=== PATIENT | male | born 1955 | race Caucasian/White ===

== ENCOUNTER → 2019-12-06 | Outpatient (CLI) | payer MEDICARE ==
[~2019-12-06] MED LIST: REGADENOSON 0.4 MG/5 ML SYRINGE IV ONE
--- NOTE | 2019-12-06 10:51 | EST ---
EXERCISE STRESS DATE OF SERVICE: 12/06/2019 AGE: 64 SEX: Male HT: 67" WT: 160 pounds PROTOCOL: Lexiscan Cardiolite STAGE: DURATION OF EXERCISE: HEART RATE REST: 70 BLOOD PRESSURE REST: 129/67 MAXIMUM HEART RATE ACHIEVED: 83 MAXIMUM BLOOD PRESSURE: 129/67 85% MPHR: 133 100% MPHR: 156 METS: INDICATION: Chest pain. CLINICAL INFORMATION: Baseline EKG shows sinus rhythm with left bundle branch block. The patient was given intravenous Lexiscan as per protocol. Did not have chest pain or diagnostic ST-segment depression. CONCLUSIONS: 1. Inconclusive EKG part of the stress test due to left bundle branch block. 2. Cardiolite portion of the stress test will be reported separately. MMODL / IJN: [id number] /
--- NOTE | 2019-12-06 11:38 | NM ---
EXAMINATION TYPE: NM stress lexiscan cardiolite DATE OF EXAM: 12/06/2019 COMPARISON: Prior nuclear medicine stress test January 17, 2013. HISTORY: Angina and cardiomyopathy per order. History of hypertension hypercholesterolemia and tobacc o use presents with chest pain and difficulty in breathing on exertion. TECHNIQUE: After the intravenous administration of 9.3 mCi Tc 99m Sestamibi - Cardiolite resting SPE CT images acquired 60 minutes post injection. The patient received 0.4mg Lexiscan, 25.2 mCi Tc 99m Sestamibi - Stress images obtained [address] injection FINDINGS: Review of stress and rest SPECT images demonstrates as suspected clinically dilated cardiomyopathy wi th marked increased end-diastolic volume. There is global hypokinesis with overall ejection fraction measured under 20%. Diminished radiotracer uptake inferior wall towards the apex on stress versus res t images is present. Acute ischemia at this level cannot be excluded. Similar finding noted mid zone of the left lateral ventricular wall seen best on short axis images. Large area of old infarct is not identified. IMPRESSION: Now abnormal study with marked left ventricular dilatation and global hypokinesis, areas of acute ischemia difficult to exclude. Cardiology referral advised to further evaluate. A Yellow level critical message alert has been initiated for Kaleigh Sarah DO via the [employer] Critical Results System on 12/06/2019 11:36 AM. This message alert has been sent to Kaleigh Sarah DO via the preferences provided by the clinician for the receipt of Radiology Critical Findings. Message ID [id number].
== END | disposition home or self-care (01) ==
LOC: RADNMMAIN 07:34
PROVIDERS: ATTEND Family Medicine
DX: R94.31 Abnormal electrocardiogram [ECG] [EKG] (principal); I42.9 Cardiomyopathy, unspecified
CPT/HCPCS: 93017; 78452; A9500; J2785

== ENCOUNTER → 2019-12-14 | Outpatient (CLI) | payer MEDICARE ==
[2019-12-14 11:18] LABS: HCT 45.7 % (39.0-53.0); HGB 14.7 gm/dL (13.0-17.5); MCH 31.6 pg (25.0-35.0); MCHC 32.1 g/dL (31.0-37.0); MCV 98.4 fL (80.0-100.0); Mean Platelet Volume 7.5; Platelet Count 250 k/uL (150-450); RBC 4.64 m/uL (4.30-5.90); WBC 10.3 k/uL (3.8-10.6)
[2019-12-14 11:29] LABS: African American GFR (CKD) >90 (>60 ml/min/1.73 sqM); Anion Gap 6 mmol/L; Blood Urea Nitrogen 18 mg/dL (9-20); Carbon Dioxide 28 mmol/L (22-30); Chloride 103 mmol/L (98-107); Non-African American GFR(CKD) >90 (>60 ml/min/1.73 sqM); Potassium 4.5 mmol/L (3.5-5.1); Sodium 137 mmol/L (137-145)
== END | disposition home or self-care (01) ==
LOC: LABPAT 10:21
PROVIDERS: ATTEND Internal Medicine Cardiovascular Disease
DX: Z01.818 Encounter for other preprocedural examination (principal); I44.7 Left bundle-branch block, unspecified
CPT/HCPCS: 36415; 80051; 82565; 84520; 85027

== ENCOUNTER 2019-12-18 09:51 | Day surgery (SDC) | payer MEDICARE ==
[2019-12-14 15:20] VITALS: BMI 25.4
[~2019-12-18 09:51] MED LIST changes: +ALPRAZolam 0.25 MG TAB PO PRN; +ALPRAZolam 0.5 MG TAB PO PRN; +ASPIRIN 325 MG TAB PO STA; +ATORVASTATIN 80 MG TAB PO STA; +NITROGLYCERIN SL TABS 0.4 MG TAB SUBLINGUAL PRN; -REGADENOSON 0.4 MG/5 ML SYRINGE IV ONE; +SODIUM CHLORIDE 0.9% 1,000 ML in EMPTY BAG 1 BAG IV ONE
[2019-12-18 10:35] VITALS: RESP 16; TEMP 97.9
[2019-12-18] MEDS ORDERED: HEPARIN SODIUM 1,000 UN/ML (10ML VL) ONE (11:16)
[2019-12-18] MEDS ORDERED: LIDOCAINE 1% INJ 10MG/ML (20 ML MDV) ONE (11:16)
[2019-12-18] MEDS ORDERED: VERAPAMIL 2.5 MG/ML 2 ML AMP ONE (11:16)
[2019-12-18] MEDS ORDERED: fentaNYL (PF) 50 MCG/ML 2 ML AMP ONE (11:25)
[2019-12-18] MEDS ORDERED: fentaNYL (PF) 50 MCG/ML 2 ML AMP IV ONE (11:28)
[2019-12-18] MEDS ORDERED: MIDAZOLAM 2 MG/2 ML VIAL IV ONE (11:28)
[2019-12-18] MEDS ORDERED: LIDOCAINE 1% INJ 10MG/ML (20 ML MDV) SQ ONE (11:31)
[2019-12-18] MEDS ORDERED: VERAPAMIL SYRINGE (5 MG/10 ML) INTRAARTER ONE (11:33)
[2019-12-18] MEDS ORDERED: IOPAMIDOL-370 125ML BTL INJ ONE (11:44)
[2019-12-18] MEDS ORDERED: IOPAMIDOL-370 50ML BTL INJ ONE (11:55)
[2019-12-18] MEDS ORDERED: RX INFO: IV CONTRAST WAS GIVEN 1 EACH MISC MISCELLANE PRN (12:10)
[2019-12-18] MEDS ORDERED: traMADol 50 MG TAB PO PRN (12:11)
[2019-12-18] MEDS ORDERED: SODIUM CHLORIDE 0.9% 1,000 ML IV SCH (12:15)
--- NOTE | 2019-12-18 12:19 | P.CARDCATH ---
Date of Procedure: 12/18/19 Preoperative Diagnosis: Exertional chest tightness, cardiomyopathy and positive stress test Postoperative Diagnosis: Calcification and ectasia of the coronary system without any significant focal lesions Procedure(s) Performed: Left heart catheterization with left ventriculography Description of Procedure: HISTORY: This is a 64-year-old gentleman with history of chronic left bundle- branch block and mild cardiomyopathy who was been experiencing exertional chest tightness and shortness of breath. Had a nuclear stress test at the hospital which was reported as showing severe fix-it defects and possible ischemia with a severely impaired LV function. Patient is advised to have a cardiac catheterization for definitive diagnosis. CONSENT:I have discussed the risks, benefits and alternative therapies for the above-mentioned procedure and for both sedation/analgesia as well as necessary blood product administration, if indicated, as they pertain to this patient. The patient has indicated understanding and acceptance of the risks and procedures discussed. PROCEDURE: Patient was brought to the lab in a fasting state. Patient was given some IV sedation. The right wrist is infiltrated with lidocaine and right radia l artery was entered using Seldinger technique. A 6-Swedish catheter was left in place and selective coronary arteriography and left ventriculography was performed. Patient tolerated the procedure well. TR band was applied for hemostasis. No immediate complications were noted and patient was transferred to [facility] in a stable condition Conscious Sedation: Versed 1mg Fentanyl 50 g Duration 32minutes HEMODYNAMICS: The aortic pressure is about 120/70. Left ankle end-diastolic pressure is 5-10. There was no gradient across the aortic valve SELECTIVE CORONARY ARTERIOGRAPHY: LEFT MAIN: This is normal in length and free of any significant occlusive disease. This is calcified THE LEFT ANTERIOR DESCENDING CORONARY ARTERY: This is a good caliber vessel with a some calcification and ectasia in the proximal portion. It gives rise to 3 diagonal branches. The second diagonal branch eczema. TAC and mild ostial stenosis. Rest of the LAD is free of any significant occlusive disease THE LEFT CIRCUMFLEX AND IS CORONARY ARTERY:. This is a good caliber vessel with a small AV groove segment and a good OM branch. The vessel is free of occlusive disease THE RIGHT CORONARY ARTERY:. This is a dominant vessel giving rise to PDA and PLV and free of any significant occlusive disease. Mild calcification the proximal portion LEFT VENTRICULOGRAPHY:. This revealed enlarged left ventricle with generalized hypokinesia with ejection fraction of about 15-20% FINAL IMPRESSION:. Mild coronary artery disease with calcification and ectasia of the proximal LAD and diagonal branch. Severely impaired LV function with a severely dilated left ventricle, consistent the nonischemic cardio myopathy with an ejection fraction of 15-20% PLAN:. Continued medical therapy. Consider for biventricular pacemaker and AICD PROGNOSIS: Guarded
--- NOTE | 2019-12-18 12:22 | P.PRLE ---
RE: Enoc Sanchez Dear Dr. Sarah, This is 64-year-old gentleman was evaluated by cardiac catheterization because of new-onset symptoms of exertional shortness of breath and chest pain and positive stress test. His cardiac catheterization did not reveal any significant obstructive disease. There is calcification and mild ectasia of the left anterior descending coronary artery. However left ventricle is severely dilated with a severe LV dysfunction. He also has underlying left bundle branch block pattern. Patient is recommended maximum medical therapy. He will also be considered for possible by be pacemaker under AICD. Prognosis is guarded Thank you again for letting me part sprayed in the care of this patient. Should you have any questions please feel free to contact me. Dr. Carlos nielsen.
[2019-12-18 13:18] VITALS: BP 122/72; PULSE 60
[2019-12-18] MEDS ORDERED: HEPARIN SODIUM,PORCINE 30 ML 30 ML ONE (14:12)
[2019-12-18] MEDS ORDERED: CARVEDILOL 3.125 MG TAB PO SCH (17:30)
[2019-12-18] MEDS ORDERED: NON FORMULARY DRUG (Fish Oil/Dha/Epa [Fish Oil 1,200 Mg Fish Oil] 1 EACH) PO SCH (21:00)
[2019-12-18] MEDS ORDERED: ENALAPRIL 2.5 MG PO SCH (21:00)
[2019-12-19] MEDS ORDERED: ASPIRIN 81 MG PO SCH (09:00)
[2019-12-19] MEDS ORDERED: NON FORMULARY DRUG (Simvastatin 40 MG) PO SCH (09:00)
[2019-12-22] MEDS ORDERED: ERGOCALCIFEROL 50,000 UNIT CAP PO SCH (12:11)
== END 2019-12-18 16:00 | disposition home or self-care (01) ==
LOC: CATHCVL 09:51
PROVIDERS: ATTEND Internal Medicine Cardiovascular Disease
DX: I25.10 Atherosclerotic heart disease of native coronary artery without angina pectoris (principal); I25.84 Coronary atherosclerosis due to calcified coronary lesion; I10 Essential (primary) hypertension; I42.9 Cardiomyopathy, unspecified; I44.7 Left bundle-branch block, unspecified; R94.39 Abnormal result of other cardiovascular function study; R93.1 Abnormal findings on diagnostic imaging of heart and coronary circulation; J44.9 Chronic obstructive pulmonary disease, unspecified; E78.00 Pure hypercholesterolemia, unspecified; E78.5 Hyperlipidemia, unspecified; G47.30 Sleep apnea, unspecified; Z79.82 Long term (current) use of aspirin; Z79.899 Other long term (current) drug therapy
CPT/HCPCS: 93458; C1769 ×2; C1894; J2250; J2001; J3010; J1644; Q9967 ×2

== ENCOUNTER 2021-09-19 09:22 | Inpatient (IN) | payer MEDICARE ==
--- NOTE | 2021-09-19 10:07 | ED ---
General Adult HPI - General Chief complaint: Shortness of Breath Stated complaint: VAMSI Time Seen by Provider: 09/19/21 09:48 Source: patient, RN notes reviewed, old records reviewed Mode of arrival: wheelchair Limitations: physical limitation - History of Present Illness Initial comments: 60 sexual male presenting for URI symptoms. Patient states over the past one week he's had cough and congestion. This started initially as nasal congestion and cold followed by chest congestion. He denies central chest pain. He has not been vaccinated against coronavirus. He denies lower extremity pain or swelling. Denies measured fever. Patient does have previous history of CHF and low ejection fraction. He states that he has abstained from both alcohol and tobacco use. - Related Data Home Medications Medication Instructions Recorded Confirmed Aspirin 81 mg PO DAILY 07/30/16 09/19/21 Enalapril [Vasotec] 5 mg PO AC-BRKFST 07/30/16 09/19/21 Fish Oil/Dha/Epa [Fish Oil 1,200 1 cap PO DAILY 07/30/16 09/19/21 mg Fish Oil] Simvastatin [Zocor] 40 mg PO HS 07/30/16 09/19/21 Vitamin B Complex 1 tab PO DAILY 07/30/16 09/19/21 Ergocalciferol [Vitamin D2 50,000 unit PO FR 12/14/19 09/19/21 (DRISDOL)] Azithromycin [Zithromax Z-pack (6 See Taper PO DIRECTED 09/19/21 09/19/21 tabs)] Previous Rx's Medication Instructions Recorded carvediloL [Coreg] 3.125 mg PO BID-W/MEALS #60 tab 12/18/19 Allergies Allergy/AdvReac Type Severity Reaction Status Date / Time No Known Allergies Allergy Verified 09/19/21 10:45 Review of Systems ROS Statement: Those systems with pertinent positive or pertinent negative responses have been documented in the HPI. ROS Other: All systems not noted in ROS Statement are negative. Past Medical History Past Medical History: Chest Pain / Angina, Deep Vein Thrombosis (DVT), Hyperlipidemia, Hypertension, Osteoarthritis (OA), Sleep Apnea/CPAP/BIPAP Additional Past Medical History / Comment(s): . DVT in 1983 after leg fx, hx kidney stones. "Bad stress test." Joint pain. No CPAP use. History of Any Multi-Drug Resistant Organisms: None Reported Past Surgical History: Orthopedic Surgery Additional Past Surgical History / Comment(s): Carapl tunnel both hands, cubital tunnel bilateral elbows, trigger thumbs, right ring finger trigger finger release, left ankle & right femur ORIF, cataract surgery. Past Anesthesia/Blood Transfusion Reactions: No Reported Reaction Past Psychological History: No Psychological Hx Reported Smoking Status: Current every day smoker Past Alcohol Use History: Rare Past Drug Use History: None Reported - Past Family History Mother Family Medical History: No Reported History General Exam Limitations: physical limitation General appearance: alert, in no apparent distress Head exam: Present: atraumatic, normocephalic Eye exam: Present: normal appearance, PERRL ENT exam: Present: mucous membranes moist Neck exam: Present: normal inspection. Absent: tenderness, meningismus Respiratory exam: Present: normal lung sounds bilaterally. Absent: respiratory distress, wheezes, rales Cardiovascular Exam: Present: regular rate, normal rhythm GI/Abdominal exam: Present: soft. Absent: distended, tenderness, guarding Extremities exam: Present: normal inspection, normal capillary refill. Absent: pedal edema Neurological exam: Present: alert, oriented X3, CN II-XII intact. Absent: motor sensory deficit Psychiatric exam: Present: normal affect, normal mood Skin exam: Present: warm, dry, intact. Absent: cyanosis, diaphoretic Course Vital Signs 09/19/21 09/19/21 09:23 10:54 Temperature 97.7 F Pulse Rate 81 73 Respiratory 18 18 Rate Blood Pressure 173/91 113/87 O2 Sat by Pulse 97 97 Oximetry EKG Findings - EKG Comments: EKG Findings:: EKG: Normal sinus rhythm, left axis, left bundle branch block, rate of 81, CA interval 146, QRS duration 196 QTC 548. Medical Decision Making - Medical Decision Making 66 yo male presenting for evaluation of cough cold symptoms, dyspnea. He has a significant past medical history of CHF and cardiomyopathy. He denies central chest pain currently or in the past several weeks. He has had some chest conge stion and difficulty breathing. His coronavirus testing is negative. Chest x- ray does show concern for CHF and pulmonary edema. Patient has normal CBC, normal CMP, elevated BNP at 10,000 and elevated troponin. I suspect troponin elevation is secondary to CHF. However he will be started on heparin awaiting trended levels. He is given an aspirin and Lasix in the emergency department. Echo has been ordered. He will be admitted to Dr. Beatty who is aware and cardiology will be placed on consult. - Lab Data Result diagrams: 09/19/21 10:40 09/19/21 10:40 Lab Results 09/19/21 09/19/21 09/19/21 Range/Units 09:30 10:40 10:40 WBC 9.0 (3.8-10.6) k/uL RBC 4.51 (4.30-5.90) m/uL Hgb 15.4 (13.0-17.5) gm/dL Hct 46.7 (39.0-53.0) % MCV 103.6 H (80.0-100.0) fL MCH 34.0 (25.0-35.0) pg MCHC 32.9 (31.0-37.0) g/dL RDW 13.8 (11.5-15.5) % Plt Count 254 (150-450) k/uL MPV 8.5 Neutrophils % 73 % Lymphocytes % 16 % Monocytes % 7 % Eosinophils % 3 % Basophils % 1 % Neutrophils # 6.6 (1.3-7.7) k/uL Lymphocytes # 1.4 (1.0-4.8) k/uL Monocytes # 0.6 (0-1.0) k/uL Eosinophils # 0.3 (0-0.7) k/uL Basophils # 0.1 (0-0.2) k/uL Macrocytosis Slight APTT 22.9 (22.0-30.0) sec Sodium (137-145) mmol/L Potassium (3.5-5.1) mmol/L Chloride (98-107) mmol/L Carbon Dioxide (22-30) mmol/L Anion Gap mmol/L BUN (9-20) mg/dL Creatinine (0.66-1.25) mg/dL Est GFR (CKD-EPI)AfAm (>60 ml/min/1.73 sqM) Est GFR (CKD-EPI)NonAf (>60 ml/min/1.73 sqM) Glucose (74-99) mg/dL Calcium (8.4-10.2) mg/dL Magnesium (1.6-2.3) mg/dL Total Bilirubin (0.2-1.3) mg/dL AST (17-59) U/L ALT (4-49) U/L Alkaline Phosphatase (38-126) U/L Troponin I (0.000-0.034) ng/mL NT-Pro-B Natriuret Pep pg/mL Total Protein (6.3-8.2) g/dL Albumin (3.5-5.0) g/dL Coronavirus (PCR) Not Detected (Not Detectd) 09/19/21 09/19/21 09/19/21 Range/Units 10:40 10:40 10:40 WBC (3.8-10.6) k/uL RBC (4.30-5.90) m/uL Hgb (13.0-17.5) gm/dL Hct (39.0-53.0) % MCV (80.0-100.0) fL MCH (25.0-35.0) pg MCHC (31.0-37.0) g/dL RDW (11.5-15.5) % Plt Count (150-450) k/uL MPV Neutrophils % % Lymphocytes % % Monocytes % % Eosinophils % % Basophils % % Neutrophils # (1.3-7.7) k/uL Lymphocytes # (1.0-4.8) k/uL Monocytes # (0-1.0) k/uL Eosinophils # (0-0.7) k/uL Basophils # (0-0.2) k/uL Macrocytosis APTT (22.0-30.0) sec Sodium 137 (137-145) mmol/L Potassium 4.9 (3.5-5.1) mmol/L Chloride 106 (98-107) mmol/L Carbon Dioxide 23 (22-30) mmol/L Anion Gap 8 mmol/L BUN 22 H (9-20) mg/dL Creatinine 0.89 (0.66-1.25) mg/dL Est GFR (CKD-EPI)AfAm >90 (>60 ml/min/1.73 sqM) Est GFR (CKD-EPI)NonAf 89 (>60 ml/min/1.73 sqM) Glucose 119 H (74-99) mg/dL Calcium 8.9 (8.4-10.2) mg/dL Magnesium 2.0 (1.6-2.3) mg/dL Total Bilirubin 1.0 (0.2-1.3) mg/dL AST 52 (17-59) U/L ALT 76 H (4-49) U/L Alkaline Phosphatase 64 (38-126) U/L Troponin I 0.243 H* (0.000-0.034) ng/mL NT-Pro-B Natriuret Pep 9880 pg/mL Total Protein 6.2 L (6.3-8.2) g/dL Albumin 3.6 (3.5-5.0) g/dL Coronavirus (PCR) (Not Detectd) Critical Care Time Critical Care Time: Yes Total Critical Care Time: 35 Disposition Clinical Impression: Congestive heart failure, Elevated troponin Disposition: ADMITTED IP TO THIS [facility] Condition: Stable Is patient prescribed a controlled substance at d/c from ED?: No Referrals: Kaleigh Sarah DO [Primary Care Provider] - 1-2 days Decision to Admit Reason: Admit from EC Decision Date: 09/19/21 Decision Time: 12:17
--- NOTE | 2021-09-19 10:32 | XR ---
EXAMINATION TYPE: XR chest 1V portable DATE OF EXAM: 09/19/2021 COMPARISON: NONE HISTORY: Cough TECHNIQUE: Single frontal view of the chest is obtained. FINDINGS: Heart is enlarged. There is subsegmental changes at the left lung base and prominent inter stitial. Soft tissue artifact overlying the lung apices. Underlying COPD suspected. IMPRESSION: 1. Correlate for bronchitis or mild interstitial pneumonitis with basilar atelectasis favored over pn eumonia. Mild venous congestion not excluded. 2. COPD and severe cardiomegaly
[2021-09-19 11:07] LABS: Basophils # (A) 0.1 k/uL (0-0.2); Basophils % (A) 1 %; Eosinophils # (A) 0.3 k/uL (0-0.7); Eosinophils % (A) 3 %; HCT 46.7 % (39.0-53.0); HGB 15.4 gm/dL (13.0-17.5); Lymphocytes # (A) 1.4 k/uL (1.0-4.8); Lymphocytes % (A) 16 %; MCHC 32.9 g/dL (31.0-37.0); MCV 103.6 fL (80.0-100.0); Macrocytosis Slight; Mean Platelet Volume 8.5; Monocytes # (A) 0.6 k/uL (0-1.0); Monocytes % (A) 7 %; Neutrophils # (A) 6.6 k/uL (1.3-7.7); Neutrophils % (A) 73 %; Platelet Count 254 k/uL (150-450); RBC 4.51 m/uL (4.30-5.90); RDW 13.8 % (11.5-15.5)
[2021-09-19 11:26] LABS: ALT 76 U/L (4-49); AST 52 U/L (17-59); African American GFR (CKD) >90 (>60 ml/min/1.73 sqM); Albumin 3.6 g/dL (3.5-5.0); Alkaline Phosphatase 64 U/L (38-126); Anion Gap 8 mmol/L; Blood Urea Nitrogen 22 mg/dL (9-20); Calcium 8.9 mg/dL (8.4-10.2); Carbon Dioxide 23 mmol/L (22-30); Chloride 106 mmol/L (98-107); Glucose 119 mg/dL (74-99); Non-African American GFR(CKD) 89 (>60 ml/min/1.73 sqM); Potassium 4.9 mmol/L (3.5-5.1); Sodium 137 mmol/L (137-145); Total Protein 6.2 g/dL (6.3-8.2)
[2021-09-19] MEDS ORDERED: FUROSEMIDE 10 MG/ML 4 ML VIAL IV STA (11:46)
[2021-09-19] MEDS ORDERED: ASPIRIN 325 MG TAB PO STA (12:06)
[2021-09-19] MEDS ORDERED: HEPARIN SODIUM 1,000 UN/ML (10ML VL) IV ONE (12:06)
[2021-09-19] MEDS ORDERED: ACETAMINOPHEN TAB 325 MG TAB PO PRN (12:12)
[2021-09-19] MEDS ORDERED: NALOXONE 0.4 MG/ML 1 ML VIAL IV PRN (12:12)
[2021-09-19] MEDS: HEPARIN SOD,PORK IN 0.45% NACL 25,000 UNIT in 0.45% NACL 1 250ML.BAG IV SCH (12:41)
[2021-09-19] MEDS: carvediloL 6.25 MG TAB PO SCH ×2 (17:48→17:49)
[2021-09-19] MEDS: lisinopriL 5 MG TAB PO SCH ×2 (17:49→19:48)
[2021-09-19] MEDS: SPIRONOLACTONE 25 MG TAB PO SCH (17:49)
[2021-09-19] MEDS ORDERED: ALPRAZolam 0.25 MG TAB PO PRN (17:53)
--- NOTE | 2021-09-19 18:00 | ECHOF ---
Referral Reason:chf MEASUREMENTS -------- HEIGHT: 170.2 cm WEIGHT: 68.0 kg BP: 113/87 RVIDd: 4.4 cm (< 3.3) IVSd: 1.0 cm (0.6 - 1.1) LVIDd: 7.5 cm (3.9 - 5.3) LVPWd: 1.1 cm (0.6 - 1.1) IVSs: 1.6 cm LVIDs: 7.1 cm LVPWs: 1.6 cm LA Diam: 4.7 cm (2.7 - 3.8) LAESV Index (A-L): 44.39 ml/m Ao Diam: 3.4 cm (2.0 - 3.7) AV Cusp: 1.4 cm (1.5 - 2.6) MV EXCURSION: 14.197 mm (> 18.000) MV EF SLOPE: 74 mm/s (70 - 150) EPSS: 4.6 cm RAP: 5.00 mmHg RVSP: 40.84 mmHg FINDINGS -------- This was a technically good study. The left ventricle is severely dilated. There is borderline concentric left ventricular hypertrophy . The calculated left ventricular ejection fraction is 11%. The right ventricle is severely enlarged. LA is severely dilated >40 ml/m2 The right atrium is normal in size. Interatrial and interventricular septum intact. The aortic valve is trileaflet, and appears structurally normal. No aortic stenosis or regurgitation. Mild mitral regurgitation is present. [id number] tricuspid regurgitation present. There is mild pulmonary hypertension. The right ventricular systolic pressure, as measured by Doppler, is 40.84mmHg. Trace/mild (physiologic) pulmonic regurgitation. The aortic root size is normal. Normal inferior vena cava with normal inspiratory collapse consistent with estimated right atrial pre ssure of 5 mmHg. The inferior vena cava is mildly dilated. There is a small pericardial effusion located near the left ventricle. CONCLUSIONS -------- 1. The calculated left ventricular ejection fraction is 11%. 2. The right ventricle is severely enlarged. 3. LA is severely dilated >40 ml/m2 4. The aortic valve is trileaflet, and appears structurally normal. No aortic stenosis or regurgitati on. 5. Mild mitral regurgitation is present. 6. [id number] tricuspid regurgitation present. 7. There is mild pulmonary hypertension. 8. The right ventricular systolic pressure, as measured by Doppler, is 40.84mmHg. 9. Trace/mild (physiologic) pulmonic regurgitation. 10. The inferior vena cava is mildly dilated. 11. There is a small pericardial effusion located near the left ventricle. CUSTOMER FIELD REPRESENTATIVE: Danna Moncada RDCS
[2021-09-19] MEDS ORDERED: ERGOCALCIFEROL 1,250 MCG (50,000 IU) CAPSULE PO SCH (19:00)
--- NOTE | 2021-09-19 19:19 | CONS ---
CONSULTATION Mr. Sanchez is a 66-year-old male with a known history of severe nonischemic cardiomyopathy, history of chronic tobacco use, history of left bundle branch block and a prior history of alcohol intake. He underwent cardiac catheterization in December of [address] Hewitt and at that time was found to have minimal coronary artery disease with severely impaired left ventricular systolic function. Recommendations at that time were made regarding ICD biventricular implantation. The patient presented with progressive symptoms of dyspnea on exertion and cough as well as chest discomfort with coughing. He continues to smoke about a pack a day. He denies any peripheral edema. He has occasional recent PND. No dizziness. No palpitations. No syncope. He has cut down his alcohol intake and drinks on an occasional basis at this time, according to him. His coronary risk factors are remarkable for hypertension and hyperlipidemia. He is nondiabetic. He is a smoker, as noted. His medications include aspirin, enalapril 5 mg daily, carvedilol 3.125 mg twice a day, simvastatin 40 mg daily, vitamin D. REVIEW OF SYSTEMS: RESPIRATORY SYSTEM: He has history of chronic obstructive lung disease, history of cough and wheezing. GI SYSTEM: No recent GI bleeding. No peptic ulcer disease. SYSTEM: No dysuria or hematuria. NERVOUS SYSTEM: No stroke or seizure. PHYSICAL EXAMINATION: This is a 66-year-old male, alert, oriented, mildly dyspneic. Blood pressure in the 170s with a heart rate in the 80s. HEAD: Normocephalic. EYES: Sclerae anicteric. NECK: Good carotid upstroke. No bruit. No jugular venous distention. LUNGS: Decreased air exchange bilaterally with scattered rhonchi. HEART: Regular rate and rhythm. S1, S2. Plus S3. Systolic ejection murmur, left upper sternal border. No diastolic murmur. No rub. ABDOMEN: Soft, nontender. Positive bowel sounds. No organomegaly. EXTREMITIES: No edema. Intact distal pulses. LAB DATA: Lab data revealed troponin 0.243. NT proBNP of 9880. BUN and creatinine 22 and 0.89. Potassium 4.9, hemoglobin 15.4. Chest x-ray shows bronchitis mild interstitial pneumonitis with possible congestion and cardiomegaly and COPD. On the monitor he is in left bundle branch block. IMPRESSION: 1. Symptoms of progressive dyspnea with congestive heart failure with severe nonischemic cardiomyopathy. 2. Mild troponin elevation related to the congestive heart failure. Patient has no significant coronary artery disease. 3. Chronic tobacco use with chronic obstructive lung disease. 4. Hyperlipidemia. 5. Hypertension. 6. Prior history of alcohol intake, improved. RECOMMENDATIONS: From the cardiac standpoint, will obtain repeat echocardiogram with Doppler. He has been started on IV Lasix. I will continue IV heparin for 24 hours. He will be continued on the beta césar and the JESSICA inhibitor. I will add Aldactone to his regimen. Will obtain echocardiogram. Depending on his progress, further recommendations will be made. I have discussed with him the importance of smoking cessation. Unfortunately the prognosis is guarded. Thank you for this consult. Will follow with you. YADIEL / IJN: [id number] /
--- NOTE | 2021-09-19 19:46 | HP ---
HISTORY AND PHYSICAL I am covering for Dr. Sarah. DATE OF SERVICE: 09/19/2021. CHIEF COMPLAINT: Shortness of breath. HISTORY OF PRESENT ILLNESS: This 66-year-old gentleman with a past medical history of chest pain, history of DVT, history of hyperlipidemia, hypertension, DJD, history of sleep apnea, being followed Dr. Sarah in the outpatient setting, was complaining of shortness of breath. The patient had some cough and congestion. The patient was vaccinated against COVID-19. Patient apparently has a history of CHF and low ejection fraction, also. Previous cardiac catheterization did not show any significant obstructive disease. On admission the troponin was found to be 0.243. BNP was 9880. COVID-19 was negative. Chest x-ray which was done, which I personally evaluated, showed evidence of cardiomegaly and CHF. Patient is admitted for further evaluation and treatment. There is no history of any fever, rigor or chills at this time. PAST MEDICAL HISTORY: History of cardiomyopathy, history of DVT, history of CHF with chronic systolic , hypertension, hyperlipidemia, history of DJD. MEDICATIONS: Medications to admission included Zocor, vitamin D, Z-Galindo, Coreg, Vasotec, vitamin B, fish oil, aspirin. ALLERGIES: NONE. FAMILY HISTORY: No history of heart disease or strokes in the family. SOCIAL HISTORY: History of smoking, continued and ongoing. REVIEW OF SYSTEMS: ENT: No diminished hearing. No diminished vision. CARDIOVASCULAR SYSTEM: No angina, palpitations. RESPIRATORY SYSTEM: As mentioned earlier. GI: As mentioned earlier. : No dysuria. NERVOUS SYSTEM: No numbness, weakness. ALLERGY/IMMUNOLOGY: No asthma or hay fever. MUSCULOSKELETAL: As mentioned earlier. HEMATOLOGY/ONCOLOGY: No history of anemia. ENDOCRINE: No history of diabetes or hypothyroidism. CONSTITUTIONAL: As mentioned earlier. DERMATOLOGY: Negative. RHEUMATOLOGY: Negative. PSYCHIATRY: As mentioned earlier. PHYSICAL EXAMINATION: Patient alert and oriented x3. Pulse 78, blood pressure ntd, respirations 16, temperature 97.7, pulse ox 96% on room air. HEENT: Conjunctivae normal. NECK: No jugular venous distention. CARDIOVASCULAR: S1, S2 muffled. RESPIRATION: Breath sounds diminished at the bases. A few scattered rhonchi and crackles. ABDOMEN: Soft, nontender. LEGS: No edema. No swelling. NERVOUS SYSTEM: Higher functions as mentioned earlier. Moves all 4 limbs. No focal motor or sensory deficit. LYMPHATICS: No lymph node palpable in neck, axillae or groin. SKIN: No ulcer, rash, bleeding. JOINTS: No active deforming arthropathy. LABS: WBC 9.3 and MCV 103. Other labs are noted. Troponin noted. ASSESSMENT: 1. Congestive heart failure, acute exacerbation, with acute on chronic systolic dysfunction. 2. History of possible dilated cardiomyopathy history. 3. Troponin elevated up to 0.243. Rule out acute non-STEMI. 4. Elevated ALT. 5. Increased mean corpuscular volume. 6. History of and continued nicotine dependence. 7. History of deep vein thrombosis. 8. Hypertension. 9. Hyperlipidemia. 10.History of degenerative joint disease. 11.History of sleep apnea. 12.History of carpal tunnel syndrome. 13.FULL CODE. RECOMMENDATIONS AND DISCUSSION: In this 66-year-old gentleman who presented with multiple complex medical issues, we will monitor the patient closely, continue the current medications, continue symptomatic treatment. Will initiate intravenous Lasix and continue to monitor. Cardiology consultation. Otherwise, resume the home medications. The prognosis is guarded because of multiple complex medical issues. Further recommendations to follow. Patient was started on Aldactone also as well as Coreg. Repeat labs will be ordered tomorrow. Further recommendations to follow. A copy of this dictation is being forwarded to Dr. Sarah, who is the primary physician. Home medications will be continued. MMODL / IJN: [id number] / MTDD
[2021-09-19] MEDS: FUROSEMIDE 10 MG/ML 4 ML VIAL IV SCH (19:47)
[2021-09-19] MEDS: ATORVASTATIN 20 MG TAB PO SCH (19:48)
[2021-09-19] MEDS: HEPARIN SODIUM 1,000 UN/ML (10ML VL) IV PRN (19:59)
[2021-09-20 01:56] LABS: Basophils # (A) 0.1 k/uL (0-0.2); Basophils % (A) 1 %; Eosinophils # (A) 0.5 k/uL (0-0.7); Eosinophils % (A) 6 %; HCT 47.7 % (39.0-53.0); HGB 15.3 gm/dL (13.0-17.5); Lymphocytes % (A) 22 %; MCHC 32.1 g/dL (31.0-37.0); MCV 102.9 fL (80.0-100.0); Macrocytosis Slight; Mean Platelet Volume 8.3; Monocytes # (A) 0.7 k/uL (0-1.0); Monocytes % (A) 8 %; Neutrophils # (A) 5.7 k/uL (1.3-7.7); Neutrophils % (A) 62 %; Platelet Count 251 k/uL (150-450); RBC 4.63 m/uL (4.30-5.90); RDW 13.9 % (11.5-15.5); WBC 9.2 k/uL (3.8-10.6)
[2021-09-20 01:59] LABS: Calcium 8.6 mg/dL (8.4-10.2)
[2021-09-20 02:01] LABS: INR 1.1 (<1.2); Partial Thromboplastin Time 39.4 sec (22.0-30.0); Prothrombin Time 11.7 sec (9.0-12.0)
[2021-09-20] MEDS: HEPARIN SODIUM 1,000 UN/ML (10ML VL) IV PRN (02:12)
[2021-09-20] MEDS: PANTOPRAZOLE 40 MG TABLET PO SCH (06:35)
[2021-09-20] MEDS ORDERED: ENALAPRIL 5 MG PO SCH (07:30)
[2021-09-20] MEDS ORDERED: NON FORMULARY DRUG (Fish Oil/Dha/Epa [Fish Oil 1,200 Mg Fish Oil] 1 EACH Capsule) PO SCH (09:00)
[2021-09-20] MEDS ORDERED: NON FORMULARY DRUG (Vitamin B Complex [Vitamin B Complex] 1 EACH Capsule) PO SCH (09:00)
[2021-09-20] MEDS: SPIRONOLACTONE 25 MG TAB PO SCH (09:06)
[2021-09-20] MEDS: ATORVASTATIN 40 MG TAB PO SCH (09:06)
[2021-09-20] MEDS: ASPIRIN 81 MG PO SCH (09:06)
[2021-09-20] MEDS: FUROSEMIDE 10 MG/ML 4 ML VIAL IV SCH (09:06)
[2021-09-20] MEDS: lisinopriL 5 MG TAB PO SCH ×2 (09:06→20:23)
[2021-09-20] MEDS ORDERED: SODIUM CHLORIDE 0.65% NASAL SPRAY 44 ML BTL NASAL PRN (09:14)
[2021-09-20] MEDS: HEPARIN SOD,PORK IN 0.45% NACL 25,000 UNIT in 0.45% NACL 1 250ML.BAG IV SCH (11:25)
--- NOTE | 2021-09-20 12:22 | PN ---
PROGRESS NOTE Mr. Sanchez is a 66-year-old male who presented with symptoms of progressive dyspnea and evidence of congestive heart failure. Patient has severe nonischemic cardiomyopathy. He has not been seen recently in the past. Recommendations were made regarding ICD biventricular implant. He has an underlying left bundle branch block. He is feeling much better today. His breathing is much better. He is denying any chest pain. He denies any dizziness or palpitations. He continues to have a cough but it has improved. He had an echocardiogram that revealed an ejection fraction reported to be 11% with biventricular dilatation and mild to moderate tricuspid and mild mitral regurgitation. He continues to be at this time on aspirin once a day, Lipitor 20 mg daily, Coreg 6.5 mg twice a day, Lasix 40 mg IV q.12 hours, IV heparin, lisinopril 5 mg twice a day and spironolactone 25 mg daily. PHYSICAL EXAMINATION: Blood pressure running in the low 100s with a heart rate in the 60s. Lungs with decreased air exchange. No wheezes. HEART: Regular rate and rhythm. S1, S2. Plus S3 and a systolic murmur. ABDOMEN: Soft, nontender. Positive bowel sounds. No organomegaly. EXTREMITIES: No edema. LAB DATA: Lab data revealed BUN and creatinine of 32 and 1.02. IMPRESSION: 1. Congestive heart failure with history of severe nonischemic cardiomyopathy. 2. Mild troponin elevation related to the congestive heart failure. No evidence of acute ischemic event. 3. Chronic tobacco use. 4. Chronic left bundle branch block. 5. Hyperlipidemia. 6. Prior history of alcohol intake. RECOMMENDATIONS: I will switch him to oral diuretic and I will stop the IV heparin. Follow his renal function closely. The patient will require evaluation down the road for ICD biventricular implantation, hoping to improve his overall status. Unfortunately the prognosis is guarded. MMODL / IJN: [id number] /
--- NOTE | 2021-09-20 19:38 | PN ---
PROGRESS NOTE DATE OF SERVICE: 09/20/2021 This 66-year-old gentleman admitted with CHF, acute exacerbation, also had significant systolic dysfunction, ejection fraction found to be only 11%. The patient is being closely monitored at this time. Patient is started on diuretics. No chest pain. No palpitations. No fever. PHYSICAL EXAMINATION: Alert and oriented x3. Pulse is 66, blood pressure 103/64, respiration 16, temperature 98.2, pulse ox 94% on room air. HEENT: Conjunctivae normal. NECK: No jugular venous distention. CARDIOVASCULAR: S1, S2 muffled. RESPIRATION: Breath sounds diminished at the bases. A few scattered rhonchi. ABDOMEN: Soft. LEGS: No edema. No swelling. NERVOUS SYSTEM: No focal deficit. LABS: Troponin 0.243 and 2.73. ASSESSMENT: 1. Congestive heart failure, acute exacerbation, with acute on chronic systolic dysfunction, ejection fraction 11%. 2. Possible dilated cardiomyopathy history. 3. Troponin elevated at 0.243, unlikely due to coronary artery disease per Cardiology, related to CHF and cardiomyopathy. 4. Elevated ALT. 5. Increased mean corpuscular volume. 6. History of continuing ongoing nicotine dependence. 7. History of deep vein thrombosis. 8. Hypertension. 9. Hyperlipidemia. 10.History of degenerative joint disease. 11.History of sleep apnea. 12.History of carpal tunnel syndrome. 13.FULL CODE. RECOMMENDATIONS AND DISCUSSION: I recommend to continue current medications, continue with the monitoring, symptomatic treatment. Continue with the diuretics. Monitor closely with Cardiology. Troponins are noted. Will continue to monitor. Guarded prognosis. Further recommendations to follow. Repeat labs will be ordered. MMODL / IJN: [id number] /
[2021-09-20] MEDS: HEPARIN SODIUM,PORCINE/PF 5,000 UNIT/0.5 ML SYRINGE SQ SCH (20:22)
[2021-09-20] MEDS: ATORVASTATIN 20 MG TAB PO SCH (20:23)
[2021-09-20] MEDS: FUROSEMIDE 20 MG TAB PO SCH (20:23)
[2021-09-21] MEDS: PANTOPRAZOLE 40 MG TABLET PO SCH (06:36)
[2021-09-21] MEDS: carvediloL 6.25 MG TAB PO SCH ×2 (06:36→17:39)
[2021-09-21 08:27] LABS: Basophils # (A) 0.1 k/uL (0-0.2); Basophils % (A) 1 %; Eosinophils # (A) 0.4 k/uL (0-0.7); Eosinophils % (A) 5 %; HGB 17.3 gm/dL (13.0-17.5); Lymphocytes # (A) 1.9 k/uL (1.0-4.8); Lymphocytes % (A) 25 %; MCHC 33.3 g/dL (31.0-37.0); MCV 102.2 fL (80.0-100.0); Macrocytosis Slight; Monocytes # (A) 0.7 k/uL (0-1.0); Monocytes % (A) 10 %; Neutrophils # (A) 4.4 k/uL (1.3-7.7); Neutrophils % (A) 58 %; Platelet Count 270 k/uL (150-450); RBC 5.09 m/uL (4.30-5.90); RDW 13.2 % (11.5-15.5); WBC 7.7 k/uL (3.8-10.6)
[2021-09-21 08:34] LABS: Calcium 9.4 mg/dL (8.4-10.2); Potassium 4.6 mmol/L (3.5-5.1)
[2021-09-21] MEDS: ASPIRIN 81 MG PO SCH (09:43)
[2021-09-21] MEDS: lisinopriL 5 MG TAB PO SCH (09:43)
[2021-09-21] MEDS: ATORVASTATIN 40 MG TAB PO SCH (09:43)
[2021-09-21] MEDS: HEPARIN SODIUM,PORCINE/PF 5,000 UNIT/0.5 ML SYRINGE SQ SCH ×2 (09:43→20:08)
[2021-09-21] MEDS: FUROSEMIDE 20 MG TAB PO SCH ×2 (09:43→20:08)
[2021-09-21] MEDS: SPIRONOLACTONE 25 MG TAB PO SCH (11:00)
--- NOTE | 2021-09-21 11:48 | PN ---
PROGRESS NOTE Mr. Sanchez is a 66-year-old male with history of severe nonischemic cardiomyopathy, history of chronic tobacco and alcohol intake who presented with worsening symptoms of congestive heart failure. He is feeling better today. He is ambulating. He denies any chest pain. He denies any dizziness or palpitation. He denies any nausea. He continues to be on aspirin once a day, Lipitor 40 mg daily, Coreg 6.5 mg twice a day, Lasix 20 mg twice a day, lisinopril 5 mg twice a day and spironolactone 25 mg daily. PHYSICAL EXAMINATION: His blood pressure is running in the 90s with a heart rate in the 70s. Lungs: Decreased air exchange. No wheezes. Heart: Regular rate and rhythm S1, S2. No S3, with systolic murmur. No diastolic murmur. Abdomen: Soft and nontender. Extremities: No edema. LAB DATA: BUN and creatinine 31 and 0.03. Hemoglobin of 17.3, potassium 4.6. His NT proBNP is 2590, which is improved compared to admission. IMPRESSION: 1. Congestive heart failure with nonischemic cardiomyopathy and severely impaired systolic function. 2. Chronic tobacco use. 3. Hyperlipidemia. 4. Left bundle branch block. 5. Chronic alcohol intake, better. RECOMMENDATIONS: I will cut the dose of his JESSICA inhibitor because of his hypotension. Continue on his beta césar, increase his activity. If he remains stable, I would expect he should be able to be discharged home tomorrow and follow up as an outpatient for the need to undergo an ICD Bi-V implantation. The importance of compliance was discussed with the patient. MMODL / IJN: [id number] /
--- NOTE | 2021-09-21 18:39 | PN ---
PROGRESS NOTE DATE OF SERVICE: 09/21/2021 This 66-year-old gentleman who was admitted with CHF exacerbation also had possible dilated cardiomyopathy. Cardiology following the patient closely. No chest pain. No palpitations. No fever. The patient is on diuretics. Shortness of breath is better. PHYSICAL EXAMINATION: Alert and oriented x3. The pulse is 72, blood pressure 100/60, respiration 20, temperature 98.2, pulse ox 98% on room air. HEENT: Conjunctivae normal. Oral mucosa moist. NECK: No jugular venous distention. No lymph node enlargement. CARDIOVASCULAR: S1, S2, muffled. No S3, no S4, RESPIRATORY: Diminished breath sounds at the bases. A few scattered rhonchi. ABDOMEN: Soft, nontender. LEGS: No edema, no swelling. NERVOUS SYSTEM: No focal deficits. LABS: WBC 7.7, sodium 136. Other labs are noted. ASSESSMENT: 1. Congestive heart failure acute exacerbation with acute on chronic systolic dysfunction, ejection fraction about 11%. 2. Possible dilated cardiomyopathy. 3. Troponin elevated to 0.29, unlikely due to coronary artery disease per Cardiology, possibly related to CHF and cardiomyopathy. 4. Elevated ALT. 5. History of increased MCV. 6. History of continued ongoing nicotine dependence. 7. History of DVT. 8. Hypertension. 9. Hyperlipidemia. 10.History of DJD. 11.History of sleep apnea. 12.History of carpal tunnel syndrome. 13.FULL CODE. RECOMMENDATIONS AND DISCUSSION: I recommend to continue current management, continue with diuretics and increase ambulation. Closely monitor. Dr. Sarah will follow. Possible discharge within the next 24 hours. Further recommendations to follow. MMODL / IJN: [id number] /
[2021-09-22] MEDS: PANTOPRAZOLE 40 MG TABLET PO SCH (06:21)
[2021-09-22] MEDS: carvediloL 6.25 MG TAB PO SCH (06:21)
[2021-09-22 07:53] LABS: Calcium 9.3 mg/dL (8.4-10.2); Potassium 5.1 mmol/L (3.5-5.1)
[2021-09-22 08:13] VITALS: BP 100/50; PULSE 72; RESP 18; TEMP 98
[2021-09-22] MEDS: FUROSEMIDE 20 MG TAB PO SCH (08:16)
[2021-09-22] MEDS: ASPIRIN 81 MG PO SCH (08:16)
[2021-09-22] MEDS: ATORVASTATIN 40 MG TAB PO SCH (08:16)
[2021-09-22] MEDS: SPIRONOLACTONE 25 MG TAB PO SCH (08:16)
[2021-09-22] MEDS: HEPARIN SODIUM,PORCINE/PF 5,000 UNIT/0.5 ML SYRINGE SQ SCH (08:16)
--- NOTE | 2021-09-22 11:03 | P.DS ---
Providers Date of admission: 09/20/21 09:52 Expected date of discharge: 09/22/21 Attending physician: Almas Sarah MD Consults: 09/19/21 12:13 Consult Physician Routine Consulting Provider: Tree Spence Consult Reason/Comments: CHF, elevated trop Do you want consulting provider notified?: Yes Primary care physician: Kaleigh Sarah Hospital Course: Final Diagnoses: Acute on chronic congestive heart failure, severely impaired systolic dysfunction, EF about 11% with nonischemic cardiomyopathy Elevated troponins, unlikely due to CAD as per cardiology, possibly related to CHF and cardiomyopathy Mild to moderate tricuspid regurgitation Pulmonary hypertension Hypersensitive Hyperlipidemia Ongoing nicotine dependence Hospital course: This is 66-year-old gentleman admitted with acute CHF exacerbation, nonischemic cardiomyopathy. Evaluated /treated by cardiology. Echo reported severely dilated left ventricle,EF of about 11%, [id number] tricuspid regurgitation, mild pulmonary hypertension small pericardial effusion will continue the left ventricle.cardiology discussing outpatient follow-up and patient will need to undergo an ICD implantation .Denies chest pain, palpitations or shortness of breath. Ambulating, tolerating exertion well. Denies lightheadedness dizziness or focal deficits. Significant clinical improvement. Patient will be discharged home today in stable condition with guarded prognosis, pending final DC recommendations and clearance as per cardiology. The impression and plan of care has been dictated as directed. : I performed a history and examination of this patient, discussed the same with the dictator. I agree with the dictator's note ,documented as a scribe. Any additional findings or plans will be noted. Patient Condition at Discharge: Stable Plan - Discharge Summary Discharge Rx Participant: No New Discharge Prescriptions: New Spironolactone [Aldactone] 25 mg PO DAILY #30 tab carvediloL [Coreg] 6.25 mg PO BID-W/MEALS #60 tab Sodium Chloride 0.65% Nasal [Deep Sea (Saline)] 2 spray NASAL QID PRN ml PRN Reason: Congestion lisinopriL [Zestril] 2.5 mg PO BID #60 tab Furosemide [Lasix] 20 mg PO BID #60 tab Continue Simvastatin [Zocor] 40 mg PO HS Aspirin 81 mg PO DAILY Vitamin B Complex 1 tab PO DAILY Fish Oil/Dha/Epa [Fish Oil 1,200 mg Fish Oil] 1 cap PO DAILY Ergocalciferol [Vitamin D2 (DRISDOL)] 50,000 unit PO FR Discontinued Enalapril [Vasotec] 5 mg PO AC-BRKFST carvediloL [Coreg] 3.125 mg PO BID-W/MEALS #60 tab Azithromycin [Zithromax Z-pack (6 tabs)] See Taper PO DIRECTED Discharge Medication List Aspirin 81 mg PO DAILY 07/30/16 [History] Fish Oil/Dha/Epa [Fish Oil 1,200 mg Fish Oil] 1 cap PO DAILY 07/30/16 [History] Simvastatin [Zocor] 40 mg PO HS 07/30/16 [History] Vitamin B Complex 1 tab PO DAILY 07/30/16 [History] Ergocalciferol [Vitamin D2 (DRISDOL)] 50,000 unit PO FR 12/14/19 [History] Furosemide [Lasix] 20 mg PO BID #60 tab 09/22/21 [Rx] Sodium Chloride 0.65% Nasal [Deep Sea (Saline)] 2 spray NASAL QID PRN ml 09/22/21 [Rx] Spironolactone [Aldactone] 25 mg PO DAILY #30 tab 09/22/21 [Rx] carvediloL [Coreg] 6.25 mg PO BID-W/MEALS #60 tab 09/22/21 [Rx] lisinopriL [Zestril] 2.5 mg PO BID #60 tab 09/22/21 [Rx] Follow up Appointment(s)/Referral(s): Almas Sarah MD [STAFF PHYSICIAN] - 3 Days Activity/Diet/Wound Care/Special Instructions: Pending final DC recommendations and clearance per cardiology. Confirm cardiology follow-up appointment prior to discharge.
--- NOTE | 2021-09-22 11:04 | PN ---
PROGRESS NOTE FOLLOW-UP NOTE: Enoc is a 66-year-old gentleman with history of nonischemic cardiomyopathy and chronic systolic heart failure who was admitted to hospital with an acute exacerbation of chronic systolic heart failure. He has been treated with intravenous diuretics with significant improvement in his symptoms. On exam, he is comfortable at rest. Vital signs are stable. There is no jugular venous distention. Carotid upstroke is normal. There is no bruit. Chest exam reveals good air entry bilaterally. Heart exam reveals first and second heart sounds. No gallop. No murmur. Abdomen is soft. Examination of extremities did not reveal any edema. Peripheral pulses are felt. He is on aspirin, Lipitor, Coreg, Lasix 20 b.i.d., Zestril 2.5 b.i.d., Protonix and Aldactone. ASSESSMENT: 1. Acute exacerbation of chronic systolic heart failure. 2. Nonischemic cardiomyopathy. PLAN: Patient is on optimal medical therapy. Stable for discharge. He needs evaluation for an AICD in the outpatient setup. MMODL / NAKULN: [id number] /
== END 2021-09-22 12:44 | disposition home health service (06) | DRG 291 ==
LOC: EC 09:22 → 3SCARD 12:24 → OBSVTOIN 09-20 09:52
PROVIDERS: ADMIT Family Medicine; ATTEND Family Medicine
DX: I11.0 Hypertensive heart disease with heart failure (principal); I50.23 Acute on chronic systolic (congestive) heart failure; I31.3 Pericardial effusion (noninflammatory); Z20.822 Contact with and (suspected) exposure to COVID-19; I25.10 Atherosclerotic heart disease of native coronary artery without angina pectoris; R79.89 Other specified abnormal findings of blood chemistry; J44.9 Chronic obstructive pulmonary disease, unspecified; I08.1 Rheumatic disorders of both mitral and tricuspid valves; R74.01 Elevation of levels of liver transaminase levels; I42.0 Dilated cardiomyopathy; I42.8 Other cardiomyopathies; I27.29 Other secondary pulmonary hypertension; I44.7 Left bundle-branch block, unspecified; I95.9 Hypotension, unspecified; E78.5 Hyperlipidemia, unspecified; G47.30 Sleep apnea, unspecified; M19.90 Unspecified osteoarthritis, unspecified site; Z79.82 Long term (current) use of aspirin; Z79.899 Other long term (current) drug therapy; Z86.718 Personal history of other venous thrombosis and embolism; Z87.442 Personal history of urinary calculi
CPT/HCPCS: 36415; 71045; 80048; 80053; 83735; 83880; 84484; 85025; 85610; 85730; 87635; 93005; 93306; 99291

== ENCOUNTER → 2021-11-01 | Outpatient (CLI) | payer MEDICARE ==
[2021-11-01 18:57] LABS: HCT 44.3 % (39.6-50.0); HGB 14.7 g/dL (13.0-17.0); MCH 32.3 pg (27.0-32.0); MCHC 33.2 g/dL (32.0-37.0); MCV 97.4 fL (80.0-97.0); Mean Platelet Volume 10.9 fL (9.5-12.2); Platelet Count 213 X 10*3/uL (140-440); RBC 4.55 X 10*6/uL (4.40-5.60); RDW 13.5 % (11.5-14.5); WBC 7.97 X 10*3/uL (4.50-10.00)
[2021-11-01 19:05] LABS: African American GFR (CKD) 87.3 (60.0-200.0); Blood Urea Nitrogen 22.5 mg/dL (9.0-27.0); Carbon Dioxide 20.5 mmol/L (20.0-27.5); Non-African American GFR(CKD) 75.3 (60.0-200.0); Potassium 4.7 mmol/L (3.5-5.5)
== END | disposition home or self-care (01) ==
LOC: LABPAT 09:08
PROVIDERS: ATTEND Internal Medicine Clinical Cardiac Electrophysiology
DX: Z01.812 Encounter for preprocedural laboratory examination (principal); I44.7 Left bundle-branch block, unspecified
CPT/HCPCS: 80051; 82565; 84520; 85027; 36415; U0003; C9803

== ENCOUNTER → 2023-11-24 | Outpatient (CLI) | payer MEDICARE ==
--- NOTE | 2023-11-24 09:26 | CTL ---
EXAMINATION TYPE: CT Low Dose Lung DATE OF EXAM: 11/24/2023 9:12 AM CLINICAL INDICATION:Male, 68 years old with history of Z12.2 LUNG CA SCREEN Z87.891 HX NICOTINE DEPEN DENC; History of tobacco use. , history of tobacco use. COMPARISON: None. TECHNIQUE: Multiple axial non-contrast scans were obtained from approximately the lung apices through the upper abdomen. Coronal and sagittal reformatted images were obtained. Low dose technique was uti lized. CT DLP: 93.4 mGycm, Automated exposure control for dose reduction was used. CT Contrast: Contrast used: None Oral contrast used: None FINDINGS: ======== Lack of intravenous contrast and low dose technique limits the evaluation of the vascular and soft ti ssue structures. LUNGS: No evidence of pulmonary fibrosis. No evidence of focal consolidation, pneumothorax or pleural effusion. Mild centrilobular emphysema. Nodules: RUL: Intrafissural lymph node series 5 image 28. RML: None. RLL: None. FELA: None. LLL: None. AIRWAY: Patent and unremarkable. HEART: Size within normal limits. Cardiac conduction leads terminating in the right ventricle and atr ium. Atherosclerosis of the arterial vasculature. MEDIASTINUM: No gross evidence of adenopathy. VASCULATURE: No aortic aneurysm. MUSCULOSKELETAL: No acute osseous abnormalities SOFT TISSUES/LYMPH NODES: Unremarkable. LOWER NECK: No significant findings. UPPER ABDOMEN: No significant findings. IMPRESSION: 1. No clinically significant pulmonary nodules. 2. Mild atherosclerosis of the coronary arteries. 3. Mild emphysema. CT LUNG RAD AND CT CHEST RECOMMENDATION: Lung-Rad 2 Benign Appearance or Behavior: Continue annual sc reening with LDCT in 12 months. S Modifier (other clinically significant findings): None Recommend smoking cessation (if current smoker), or continuation of smoking cessation (if prior smoke r). Annual screening for lung cancer with low-dose computed tomography is recommended in adults ages 55 to 77 years who have a 30 pack-year smoking history and currently smoke or have quit within the pa st 15 years. Screening should be discontinued once a person has not smoked for 15 years or develops a health problem that substantially limits life expectancy or the ability or willingness to have curat chavez lung surgery. Lung rads 2021 [email or web address]
== END | disposition home or self-care (01) ==
LOC: RADCTMAIN 08:44
PROVIDERS: ATTEND Family Medicine
DX: Z12.2 Encounter for screening for malignant neoplasm of respiratory organs (principal); I25.10 Atherosclerotic heart disease of native coronary artery without angina pectoris; J43.9 Emphysema, unspecified; Z87.891 Personal history of nicotine dependence
CPT/HCPCS: 71271

== ENCOUNTER → 2024-02-03 | Day surgery (SDC) | payer MEDICARE ==
[~2024-02-03] MED LIST changes: -ALPRAZolam 0.25 MG TAB PO PRN; -ALPRAZolam 0.5 MG TAB PO PRN; -ASPIRIN 325 MG TAB PO STA; -ATORVASTATIN 80 MG TAB PO STA; +ETOMIDATE 2 MG/ML 10 ML VIAL ONE; -NITROGLYCERIN SL TABS 0.4 MG TAB SUBLINGUAL PRN; -SODIUM CHLORIDE 0.9% 1,000 ML in EMPTY BAG 1 BAG IV ONE
[2024-02-03] MEDS: LACTATED RINGERS 1,000 ML IV SCH (08:32)
[2024-02-03 08:37] LABS: Glucose,Whole Blood 104 mg/dL (70-110)
[2024-02-03 08:38] VITALS: TEMP 96.9
--- NOTE | 2024-02-03 08:56 | P.GSHP ---
History of Present Illness H&P Date: 02/03/24 Chief Complaint: history of colon polyps this is a 60-year-old male who presents today for colonoscopy. Ppatient has a previous history of colon polyps. His last colonoscopy 6 years ago. Past Medical History Past Medical History: Chest Pain / Angina, Heart Failure, Diabetes Mellitus, Deep Vein Thrombosis (DVT), Hyperlipidemia, Hypertension, Osteoarthritis (OA), Sleep Apnea/CPAP/BIPAP Additional Past Medical History / Comment(s): Hx DVT in 1983 after leg fx, hx kidney stones, joint pain in right shoulder, no CPAP use. hx. colon polyps, borderline diabetes, emphysema History of Any Multi-Drug Resistant Organisms: None Reported Past Surgical History: AICD, Orthopedic Surgery Additional Past Surgical History / Comment(s): Bilateral carapl tunnel, cubital tunnel bilateral elbows, trigger thumbs, right ring finger trigger finger release, left ankle & right femur ORIF, cataract surgery. Past Anesthesia/Blood Transfusion Reactions: No Reported Reaction Additional Past Anesthesia/Blood Transfusion Reaction / Comment(s): no hx. of transfusion reaction Type of Cardiac Device: AICD Device Placement Date:: 2021 Smoking Status: Former smoker - Past Family History Mother Family Medical History: No Reported History Medications and Allergies Home Medications Medication Instructions Recorded Confirmed Type Aspirin 81 mg PO DAILY 07/30/16 02/01/24 History Simvastatin [Zocor] 20 mg PO HS 07/30/16 02/03/24 History Vitamin B Complex 1 tab PO DAILY 07/30/16 02/03/24 History Ergocalciferol [Vitamin D2 50,000 unit PO FR 12/14/19 02/03/24 History (DRISDOL)] Furosemide [Lasix] 20 mg PO BID #60 tab 09/22/21 02/03/24 Rx Spironolactone [Aldactone] 25 mg PO DAILY #30 tab 09/22/21 02/03/24 Rx carvediloL [Coreg] 6.25 mg PO BID-W/MEALS #60 tab 09/22/21 02/03/24 Rx Cyanocobalamin (Vitamin B-12) 1,000 mcg PO DAILY 02/01/24 02/01/24 History [Vitamin B-12] Multivitamins, Thera [Multivitamin 1 tab PO DAILY 02/01/24 02/01/24 History (formulary)] Nitroglycerin Sl Tabs [Nitrostat] 0.4 mg SUBLINGUAL Q5M PRN 02/01/24 02/03/24 History [place]-3/Dha/Epa/Fish Oil [Fish Oil 1 each PO DAILY 02/01/24 02/03/24 History 1,000 mg Softgel] Prevagen 1 tab PO DAILY 02/01/24 02/01/24 History Sacubitril/Valsartan [Entresto 49 1 each PO BID 02/01/24 02/03/24 History mg-51 mg Tablet] Valsartan [Diovan] 20 mg PO BID 02/01/24 02/03/24 History metFORMIN HCL [Glucophage] 500 mg PO BID 02/01/24 02/03/24 History Allergies Allergy/AdvReac Type Severity Reaction Status Date / Time No Known Allergies Allergy Verified 02/03/24 08:14 Surgical - Exam Vital Signs Temp Pulse Resp BP Pulse Ox 96.9 F L 69 16 120/73 97 02/03/24 08:23 02/03/24 08:23 02/03/24 08:23 02/03/24 08:23 02/03/24 08:23 - General well developed, well nourished, no distress - Eyes PERRL - ENT normal pinna, normal nares - Neck no masses - Respiratory normal expansion - Cardiovascular Rhythm: regular - Abdomen Abdomen: soft, non tender Assessment and Plan Assessment: history of colon polyps. We'll perform colonoscopy.
--- NOTE | 2024-02-03 09:06 | P.OP ---
Date of Procedure: 02/03/24 Preoperative Diagnosis: history of colon polyps Postoperative Diagnosis: rectal polyp Procedure(s) Performed: colonoscopy Anesthesia: MAC Surgeon: Navdeep Hernandez Pathology: other (rectal polyp) Condition: stable Disposition: PACU Description of Procedure: the patient's placed on the endoscopy table in the lateral position. He received IV sedation. Digital rectal examwas performed. This revealed no abnormalities. the prostate was symmetrical without nodules.The flexible colonoscope was then placed patient anus passed throughout the entire colon. The ileocecal valve cecum, ascending and transverse colon appeared normal. The descending and sigmoid colon appeared normal. Scope summer back the rectum and a polyp was seen. The cold forcep. Scope was withdrawn for patient.
[2024-02-03 10:07] VITALS: BP 99/66; PULSE 58; RESP 18
== END ==
LOC: ORWHC2ENDO 07:52
PROVIDERS: ATTEND Surgery
DX: Z12.11 Encounter for screening for malignant neoplasm of colon (principal); K62.1 Rectal polyp; I11.0 Hypertensive heart disease with heart failure; E78.5 Hyperlipidemia, unspecified; E11.9 Type 2 diabetes mellitus without complications; M19.90 Unspecified osteoarthritis, unspecified site; J44.9 Chronic obstructive pulmonary disease, unspecified; G47.33 Obstructive sleep apnea (adult) (pediatric); Z86.010 Personal history of colon polyps; Z86.718 Personal history of other venous thrombosis and embolism; Z95.810 Presence of automatic (implantable) cardiac defibrillator; Z87.891 Personal history of nicotine dependence; Z79.82 Long term (current) use of aspirin; Z79.899 Other long term (current) drug therapy; Z79.84 Long term (current) use of oral hypoglycemic drugs; Z98.890 Other specified postprocedural states
CPT/HCPCS: 45380; 88305

== ENCOUNTER 2024-04-17 11:59 | Emergency (ER) | payer MEDICARE ==
--- NOTE | 2024-04-17 12:12 | ED ---
Fall HPI - General Chief Complaint: Fall Stated Complaint: Fall, back pain Time Seen by Provider: 04/17/24 12:11 Source: patient, RN notes reviewed, old records reviewed Mode of arrival: wheelchair Limitations: no limitations - History of Present Illness Initial Comments: This is a 68-year-old male to the ER for evaluation patient presents today for evaluation regards to fall. Patient fell what he believes to be about 4 feet off. Up onto his upper back. Severe upper back pain which happened a few hours prior to arrival. 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: no Place Fall Occurred: home Loss of Consciousness: none Prolonged Down Time?: no Symptoms Prior to Fall: none Location: chest, back, pelvis Severity: severe Severity scale (1-10): 10 Context: tripped/slipped Associated Symptoms: denies - Related Data Home Medications Medication Instructions Recorded Confirmed Aspirin 81 mg PO DAILY 07/30/16 04/17/24 Ergocalciferol [Vitamin D2 50,000 unit PO Q14D 12/14/19 04/17/24 (DRISDOL)] Nitroglycerin Sl Tabs [Nitrostat] 0.4 mg SL Q5M PRN 02/01/24 04/17/24 Sacubitril/Valsartan [Entresto 49 0.5 tab PO BID 02/01/24 04/17/24 mg-51 mg Tablet] Valsartan [Diovan] 20 mg PO BID 02/01/24 04/17/24 metFORMIN HCL [Glucophage] 500 mg PO BID 02/01/24 04/17/24 Empagliflozin [Jardiance] 10 mg PO DAILY 04/17/24 04/17/24 Nitroglycerin 0.1MG/Hr Patch 1 patch TRANSDERM DAILY PRN 04/17/24 04/17/24 [Nitro-Dur 0.1MG/Hr Patch] QUEtiapine FUMARATE [SEROquel] 6.25 mg PO HS PRN 04/17/24 04/17/24 Rosuvastatin Calcium [Crestor] 40 mg PO HS 04/17/24 04/17/24 carvediloL [Coreg] 6.25 mg PO BID 04/17/24 04/17/24 Previous Rx's Medication Instructions Recorded Furosemide [Lasix] 20 mg PO BID #60 tab 09/22/21 Spironolactone [Aldactone] 25 mg PO DAILY #30 tab 09/22/21 Allergies Allergy/AdvReac Type Severity Reaction Status Date / Time No Known Allergies Allergy Verified 04/17/24 13:52 Review of Systems ROS Statement: Those systems with pertinent positive or pertinent negative responses have been documented in the HPI. ROS Other: All systems not noted in ROS Statement are negative. Past Medical History Past Medical History: Chest Pain / Angina, Heart Failure, Diabetes Mellitus, Deep Vein Thrombosis (DVT), Hyperlipidemia, Hypertension, Osteoarthritis (OA), Sleep Apnea/CPAP/BIPAP Additional Past Medical History / Comment(s): Hx DVT in 1983 after leg fx, hx kidney stones, joint pain in right shoulder, no CPAP use. hx. colon polyps, borderline diabetes, emphysema History of Any Multi-Drug Resistant Organisms: None Reported Past Surgical History: AICD, Orthopedic Surgery Additional Past Surgical History / Comment(s): Bilateral carapl tunnel, cubital tunnel bilateral elbows, trigger thumbs, right ring finger trigger finger release, left ankle & right femur ORIF, cataract surgery. Past Anesthesia/Blood Transfusion Reactions: No Reported Reaction Additional Past Anesthesia/Blood Transfusion Reaction / Comment(s): no hx. of transfusion reaction Type of Cardiac Device: AICD Device Placement Date:: 2021 Past Psychological History: Anxiety Smoking Status: Former smoker - Past Family History Mother Family Medical History: No Reported History General Exam Limitations: no limitations General appearance: alert, in no apparent distress Head exam: Present: atraumatic, normocephalic, normal inspection Eye exam: Present: normal appearance, PERRL, EOMI. Absent: scleral icterus, conjunctival injection, periorbital swelling ENT exam: Present: normal exam, mucous membranes moist Neck exam: Present: normal inspection. Absent: tenderness, meningismus, lymphadenopathy Respiratory exam: Present: normal lung sounds bilaterally. Absent: respiratory distress, wheezes, rales, rhonchi, stridor Cardiovascular Exam: Present: regular rate, normal rhythm, normal heart sounds. Absent: systolic murmur, diastolic murmur, rubs, gallop, clicks GI/Abdominal exam: Present: soft, normal bowel sounds. Absent: distended, tenderness, guarding, rebound, rigid Extremities exam: Present: normal inspection, full ROM, normal capillary refill. Absent: tenderness, pedal edema, joint swelling, calf tenderness Back exam: Present: normal inspection Neurological exam: Present: alert, oriented X3, CN II-XII intact Psychiatric exam: Present: normal affect, normal mood Skin exam: Present: warm, dry, intact, normal color. Absent: rash Course Vital Signs 04/17/24 04/17/24 04/17/24 12:00 12:30 13:00 Temperature 97.5 F L Pulse Rate 57 L 60 60 Respiratory 18 22 22 Rate Blood Pressure 119/70 107/71 108/72 O2 Sat by Pulse 98 95 95 Oximetry 04/17/24 04/17/24 14:10 14:15 Temperature 97.9 F Pulse Rate 56 L 66 Respiratory 16 16 Rate Blood Pressure 104/67 93/67 O2 Sat by Pulse 95 98 Oximetry - Reevaluation(s) Reevaluation #1: 04/17/24 12:48 Medical records reviewed Reevaluation #2: 04/17/24 12:48 Patient symptoms unchanged 04/17/24 12:49 Patient symptoms improved Reevaluation #3: 04/17/24 12:49 Patient informed of results and questions answered Reevaluation #4: Was pt. sent in by a medical professional or institution (, PA, REHABILITATION COUNSELLOR, urgent care, hospital, or [facility]...) When possible be specific @ -no Did you speak to anyone other than the patient for history (EMS, parent, family, police, friend...)? What history was obtained from this source @ -no Did you review nursing and triage notes (agree or disagree)? Why? @ -agree Are old charts reviewed (outside hosp., previous admission, EMS record, old EKG, old radiological studies, urgent care reports/EKG's, [facility] records)? Report findings @ -yes Differential Diagnosis (chest pain, altered mental status, abdominal pain women, abdominal pain men, vaginal bleeding, weakness, fever, dyspnea, syncope, headache, dizziness, GI bleed, back pain, seizure, CVA, palpatations, mental health, musculoskeletal)? @ -prior EKG interpreted by me (3pts min.). @ -yes X-rays interpreted by me (1pt min.). @ -yes negative for acute disease CT interpreted by me (1pt min.). @ -no U/S interpreted by me (1pt. min.). @ -no What testing was considered but not performed or refused? (CT, X-rays, U/S, labs)? Why? @ -none What meds were considered but not given or refused? Why? @ -none Did you discuss the management of the patient with other professionals (professionals i.e. DrJailyn, PA, REHABILITATION COUNSELLOR, lab, RT, psych nurse, dialysis social worker, risk assessment consultant, teacher, armor officer, heel caser)? Give summary @ -no Was smoking cessation discussed for >3mins.? @ -no Was critical care preformed (if so, how long)? @ -no Were there social determinants of health that impacted care today? How? (Homelessness, low income, unemployed, alcoholism, drug addiction, transportation, low edu. Level, literacy, decrease access to med. care, [facility], rehab)? @ -none Was there de-escalation of care discussed even if they declined (Discuss DNR or withdrawal of care, Hospice)? DNR status @ -no What co-morbidities impacted this encounter? (DM, HTN, Smoking, COPD, CAD, Cancer, CVA, ARF, Chemo, Hep., AIDS, mental health diagnosis, sleep apnea, morbid obesity)? @ -none Was patient admitted / discharged? Hospital course, mention meds given and route, prescriptions, significant lab abnormalities, going to OR and other pertinent info. @ - 68 male to the ER for evaluation of fall fall with severe back pain patient has severe pain here in the emergency department is improved. Imaging is negative patient can be discharged home Discharge Undiagnosed new problem with uncertain prognosis? @ -no Drug Therapy requiring intensive monitoring for toxicity (Heparin, Nitro, Insulin, Cardizem)? @ -no Were any procedures done? @ -no Diagnosis/symptom? @ -Fall with back pain Acute, or Chronic, or Acute on Chronic? @ -Acute Uncomplicated (without systemic symptoms) or Complicated (systemic symptoms)? @ -Complicated Side effects of treatment? @ -no Exacerbation, Progression, or Severe Exacerbation? @ -exacerbation Poses a threat to life or bodily function? How? (Chest pain, [place], [place], pneumonia, PE, COPD, DKA, ARF, appy, cholecystitis, CVA, Diverticulitis, Homicidal, Suicidal, threat to staff... and all critical care pts) @ -no Reevaluation #5: Differential Back Pain: Strain, zoster, cauda equina syndrome, epidural abscess, vertebral osteomyelitis, discitis, fracture, subluxation, disc herniation, DJD, spinal stenosis, dissection, AAA, pancreatitis, peptic ulcer disease, pyelonephritis, kidney stone, this is not meant to be an all-inclusive list. Medical Decision Making - Medical Decision Making 68 Female to the ER for evaluation of fall fall with severe back pain patient has severe pain here in the emergency department is improved. Imaging is negative patient can be discharged home - EKG Data -: EKG Interpreted by Me (EKG is paced 62 CO 163 QRS 212 QTc 501) - Radiology Data Radiology results: report reviewed (CXR, XR back, XR pelvis is negative for acute disaese), image reviewed Disposition Clinical Impression: Fall, Back pain, Thoracic back pain Disposition: HOME SELF-CARE Condition: Good Instructions (If sedation given, give patient instructions): Fall Prevention for Older Adults (ED) Is patient prescribed a controlled substance at d/c from ED?: No Referrals: Kaleigh Sarah DO [Primary Care Provider] - 1-2 days Time of Disposition: 12:50
[2024-04-17] MEDS: ACETAMINOPHEN TAB 500 MG TAB PO STA (12:40)
[2024-04-17] MEDS: SODIUM CHLORIDE 0.9% 500 ML 500 ML IV STA (12:42)
[2024-04-17] MEDS: KETOROLAC 15 MG/ML 1 ML VIAL IVP STA (12:45)
[2024-04-17] MEDS: HYDROmorphone 1 MG/ML 1 ML SYRINGE IVP STA (12:48)
--- NOTE | 2024-04-17 13:29 | XR ---
EXAMINATION TYPE: XR thoracic spine 2V DATE OF EXAM: 04/17/2024 CLINICAL HISTORY: pain TECHNIQUE: Frontal, lateral, and swimmer's view of thoracic spine are obtained. COMPARISON: None. FINDINGS: Thoracic spine show satisfactory alignment without evidence of acute fracture or dislocatio n. Vertebral body heights are preserved. Moderate multilevel degenerative disc space narrowing and v entral spondylosis. Visualized ribs are unremarkable. IMPRESSION: No acute fracture or dislocation is seen in the thoracic spine. ICD 10 NO FRACTURE, INIT IAL EVALUATION
--- NOTE | 2024-04-17 13:30 | XR ---
EXAMINATION TYPE: XR pelvis AP view DATE OF EXAM: 04/17/2024 CLINICAL HISTORY: pain TECHNIQUE: Single view the pelvis is submitted. FINDINGS: No evidence for fracture, dislocation or bony lesion. Joint spaces are mildly narrowed. H ypertrophic changes about the right hip with extensive spurring within the supra-acetabular/greater t rochanteric region. SI joints appear symmetric. IMPRESSION: 1. No acute fracture or dislocation seen. ICD 10 NO FRACTURE, INITIAL EVALUATION
--- NOTE | 2024-04-17 13:31 | XR ---
EXAMINATION TYPE: XR chest 1V DATE OF EXAM: 04/17/2024 HISTORY: Shortness of breath. COMPARISON: 11/04/2021 TECHNIQUE: Single view of the chest is submitted. FINDINGS: Demonstrated are scattered senescent parenchymal change. There is no evidence for focal infiltrate. At least moderate cardiomegaly. Dual lead pacer in place. Hilar and mediastinal structures are within normal limits. Degenerative changes are seen of the dorsal spine. IMPRESSION: 1. Chronic changes without evidence for acute pulmonary disease.
[2024-04-17] MEDS: IBUPROFEN 600 MG STARTER PACK 4 TAB BTL PO STA (14:01)
[2024-04-17] MEDS: traMADol 50 MG STARTER PACK 3 TAB BTL PO STA (14:02)
[2024-04-17] MEDS: MORPHINE SULFATE 4 MG/ML SYRINGE IVP STA (14:07)
[2024-04-17 14:17] VITALS: BP 93/67; PULSE 66; RESP 16; TEMP 97.9
== END 2024-04-17 14:23 | disposition home or self-care (01) ==
LOC: EC 11:59
DX: M54.6 Pain in thoracic spine (principal); Z87.891 Personal history of nicotine dependence; W01.0XXA Fall on same level from slipping, tripping and stumbling without subsequent striking against object, initial encounter; Y92.019 Unspecified place in single-family (private) house as the place of occurrence of the external cause
CPT/HCPCS: 93005; 72070; 72170; 71045; 99284; 96374; 96375 ×2; 96361; J2270; J1170; J1885

== ENCOUNTER → 2024-11-28 | Outpatient (CLI) | payer MEDICARE ==
--- NOTE | 2024-11-28 16:01 | CTL ---
EXAMINATION TYPE: CT Low Dose Lung DATE OF EXAM: 11/28/2024 12:21 PM COMPARISON: 11/24/2023 SCREENING VISIT: Subsequent CT DIAGNOSTIC QUALITY: Limited, but interpretable CLINICAL INDICATION: Male, 69 years old with history of Z12.2 SCREENING LUNG CA Z87.891 FORMER SMOKER , Former smoker, quit 2021, was .5 ppd x 50 years., Lung cancer screening, History of tobacco use. TECHNIQUE: Low dose computed tomography scan was performed through the chest at 1 mm thick sections a nd reconstructed images in the coronal plane at 1 mm thick sections. Contrast used: mL of , (none if empty) Oral contrast used: (none if empty) CT DLP: 59 mGycm, Automated exposure control for dose reduction was used. CT CTDI: 1.64 mGy, Automated exposure control for dose reduction was used. FINDINGS: LUNG NODULES: None. LUNGS: COPD: Severity: None Fibrosis: Severity: None Lymph nodes: None Other findings: None RIGHT PLEURAL SPACE: Effusion: None Calcification: None Thickening: None Pneumothorax: None LEFT PLEURAL SPACE: Effusion: None Calcification: None Thickening: None Pneumothorax: None HEART: Other: Ascending thoracic aorta at the level the main pulmonary artery measures 3.7 cm. The main pul monary artery at the bifurcation measures 2.8 cm. Heart Size: Normal Coronary calcification: Mild Pericardial effusion: None OTHER FINDINGS: Upper abdomen: Normal Bony thorax: Normal Supraclavicular region: Normal IMPRESSION: No suspicious abnormality to suggest primary or metastatic neoplasm FOLLOW UP CT CHEST RECOMMENDATION: Low-dose CT chest [address] LUNG RAD: Lung-Rad 1 Negative [facility], Workstation: [employer] [facility], 11/28/2024 3:58 PM
== END | disposition home or self-care (01) ==
LOC: RADCTMAIN 11:22
PROVIDERS: ATTEND Family Medicine
DX: Z12.2 Encounter for screening for malignant neoplasm of respiratory organs (principal); Z87.891 Personal history of nicotine dependence
CPT/HCPCS: 71271